=== PATIENT | male | born 1990 | race Caucasian/White ===

== ENCOUNTER 2019-10-12 16:18 | Emergency (ER) | payer OTHER, SELFPAY ==
[2019-10-12 16:30] VITALS: BP 125/79; PULSE 79; RESP 16; TEMP 36.7; O2SAT 98
--- NOTE | 2019-10-12 16:44 | ED.GENADULT ---
HPI - General Adult General Chief complaint: Urogenital-Male Stated complaint: pain in kidney area Time Seen by Provider: 10/12/19 16:46 Source: patient and RN notes reviewed Mode of arrival: ambulatory Limitations: no limitations History of Present Illness HPI narrative: 29 year old male who presents to [facility] care with complaints of 2-3 days of burning with urination after stream is completed, bilateral flank pressure. Patient denies any fevers, chills or sweats., no abdominal pain or pressure sensations in perineum or any penile discharge. Patient states that he had a kidney infection in the past and he does drink a lot of soda.Patient states he does not think he has a STD he has been with same sexual partner for months and does not want testing at this time. MD complaint: burning with urination and flank pain Onset (ago): day(s) (2-3 days) Location: back (flank pressure) Radiation: non-radiation Severity: mild Severity scale (1-10): 3 Quality: aching Pain Consistency: intermittent Relieving factors: none Exacerbating factors: other (urination) Associated symptoms: denies other symptoms Treatments prior to arrival: none Related Data Allergies Allergy/AdvReac Type Severity Reaction Status Date / Time Penicillins Allergy Unknown Verified 08/04/14 09:16 Review of Systems Review of Systems: Narrative: CONSTITUTIONAL: Denies fever, chills, or sweats. EYES: Denies visual changes, redness, or discharge. ENT: Denies rhinorrhea, congestion, sore throat, or otalgia. CARDIOVASCULAR: Denies chest pain, palpitations, or edema. RESPIRATORY: Denies cough or dyspnea. GASTROINTESTINAL: Denies abdominal pain, nausea, vomiting, or diarrhea. GENITOURINARY: Positive burning after stream of urination , no visible hematuria. SKIN: Denies rash or itching. MUSCULOSKELETAL: Positive CVA tenderness, joint pain, or myalgia. NEUROLOGIC: Denies headache, numbness, or weakness. PSYCHIATRIC: Denies anxiety or depression. All systems reviewed & are unremarkable except as noted in HPI and below PMFSH Past Medical History Medical History (Updated 10/14/19 @ 15:52 by Jessica Everett NP) Atypical chest pain Hiatal hernia Surgical History Surgical History (Updated 10/14/19 @ 15:52 by Jessica Everett NP) H/O inguinal hernia repair Family History Family History Mother Family history of mental disorder Depression Father Asthma Family history of allergic disorder Other Diabetes mellitus Hypertension Social History Social History (Updated 10/14/19 @ 16:00 by Jessica Everett NP) Smoking status: Former smoker Alcohol intake: current Substance use: former Substance use type: heroin and methamphetamine Living arrangements: with family Gender identity (if verbalized by the patient): Male Exam Narrative: Exam Narrative: GENERAL: Well-appearing, well-nourished, and in no acute distress. HEAD: Normocephalic, atraumatic. EYES: PERRLA and EOMI. ENT: Nares clear, no rhinorrhea or epistaxis. Mucous membranes moist. NECK: Supple.no lymphadenopathy CHEST: Clear to auscultation. No respiratory distress. HEART: Regular rate and rhythm. No murmur heard. Normal peripheral pulses. ABDOMEN: Soft, nontender, nondistended, normal active bowel sounds.bilateral CVA tenderness EXTREMITIES: Normal range of motion. No edema. SKIN: Warm, dry, no rash. NEURO: No focal deficits. Alert and oriented x3. Course Vital Signs Vital signs: Vital Signs Temperature 36.7 C 10/12/19 16:30 Pulse Rate 79 10/12/19 16:30 Respiratory Rate 16 10/12/19 16:30 Blood Pressure 125/79 10/12/19 16:30 Pulse Oximetry 98 10/12/19 16:30 Temperature 36.7 C 10/12/19 16:30 Pulse Rate 79 10/12/19 16:30 Respiratory Rate 16 10/12/19 16:30 Blood Pressure 125/79 10/12/19 16:30 Pulse Oximetry 98 10/12/19 16:30 Medical Decision Making Differential Diagnosis Differenti
== END 2019-10-12 17:19 | disposition home or self-care (01) ==
PROVIDERS: Emergency Provider Registered Nurse
DX: N39.0 Urinary tract infection, site not specified (principal); Z87.891 Personal history of nicotine dependence
CPT/HCPCS: 81003; 87086; 99213; G0463